=== PATIENT | female | born 1955 | race Caucasian/White ===

== ENCOUNTER 2019-12-10 01:10 | Day surgery (SDC) | payer BC, SELFPAY ==
[2019-12-09 13:51] VITALS: BMI 33.3
--- NOTE | 2019-12-10 13:34 | P.PNAN_ITS ---
Anes - Initial Pre Proc Eval Procedure: Operation Date: 12/10/19 14:00 Proposed Procedures p Esophagogastroduodenoscopy - Angel Moss MD Date/Time: 12/10/19 13:34 Surgeon: Angel Moss MD Pre Op Diagnosis: Abdominal Pain, Nausea Patient Data Age: 64 Gender: F Height: 5 ft 4 in Weight: 88 kg Allergies Allergy/AdvReac Type Severity Reaction Status Date / Time Penicillins Allergy Unknown Hives Verified 12/09/19 13:47 Home Medications Medication Instructions Recorded Confirmed Type furosemide 20 mg PO DAILY 12/09/19 12/09/19 History hydroxychloroquine 200 mg PO BID 12/09/19 12/09/19 History ibuprofen-famotidine [Duexis] 1 tablet PO DAILY 12/09/19 12/09/19 History jhypkswrjvfd-gmw-hrpj-FA-vit K 1 tablet PO DAILY 12/09/19 12/09/19 History [Adults Multivitamin] pantoprazole 40 mg PO DAILY 12/09/19 12/09/19 History Patient hx anesthesia problems: none Family hx anesthesia problems: none [facility] Past Medical History Medical History (Updated 12/10/19 @ 13:29 by Ted Christensen MD) Constipation GERD (gastroesophageal reflux disease) Nausea Social History Social History Alcohol intake: never Anes - Eval Final PreProcedure Day of Procedure 12/10/19 13:34 Patient weight: overweight Heart: regular rate and rhythm Lungs: clear to auscultation Airway: Mallampati scale class II Neurological: alert and oriented Last oral intake: >/= 8 hours ASA classification: II Emergent: no Anesthetic plan: proceed Anesthesia type and monitoring: general GIVS and standard monitoring Informed Consent: The patient's anesthetic plan and its attendant risks and benefits were discussed with the patient/family/POA. Questions were solicited and answers provided to the satisfaction of the patient/family/POA.
[2019-12-10] MEDS: LACTATED RINGERS 1,000 ML 150 ML IV CONT (13:37)
[2019-12-10 13:40] VITALS: BP 125/48; PULSE 62; RESP 16; TEMP 36.6; O2SAT 100; BMI 34.0
--- NOTE | 2019-12-10 14:52 | WPDHPUPDATE1 ---
History and Physical Update Update Date/Time: 12/10/19 14:52 History and Physical has been reviewed, including an updated exam of the patient. There are NO changes in the patient's condition. Risks, benefits, and alternatives have been discussed and questions answered. Patient agrees to proceed with procedure.
[2019-12-10 15:00] VITALS: BP 119/85; PULSE 58; RESP 20; O2SAT 99
[2019-12-10 15:10] VITALS: BP 109/59; PULSE 56; RESP 22; O2SAT 100
[2019-12-10 15:20] VITALS: BP 114/45; PULSE 55; RESP 23; O2SAT 100
== END 2019-12-10 15:34 | disposition home or self-care (01) ==
PROVIDERS: PCP Internal Medicine; Visit Provider Internal Medicine Gastroenterology
PROC: 0DJ08ZZ Inspection of Upper Intestinal Tract, Via Natural or Artificial Opening Endoscopic (ICD-10-PCS; CPT 43235; principal; 2019-12-10 14:00)
DX: K29.50 Unspecified chronic gastritis without bleeding (principal); K21.9 Gastro-esophageal reflux disease without esophagitis; K59.00 Constipation, unspecified
CPT/HCPCS: 43239; 88305; 88342; J2704; J7120

== ENCOUNTER → 2019-12-11 10:17 | Outpatient (CLI) | payer BC, SELFPAY ==
--- NOTE | ~2019-12-11 | US_ITS ---
EXAMINATION: US carotid duplex BI EXAM DATE: 12/11/2019 11:04 INDICATION: Bilateral carotid stenosis. TECHNIQUE: Grayscale, color and pulsed Doppler images of the cervical carotid arteries were obtained . The degree of vessel stenosis is placed in one of the following categories: normal, <50% stenosis, 50-69% stenosis, >=70% stenosis but less than near-occlusion, near-occlusion, or occlusion. Note that percent stenosis relative to normal distal artery lumen diameter is indirectly measured from velocit y measurements as described by Og, et al. Radiology 2003; 229:340-346. There is no prior study fo r comparison. FINDINGS: RIGHT SIDE: Right common carotid artery peak systolic velocity (PSV in cm/s): 97 Right bulb/internal carotid artery peak systolic velocity (PSV in cm/s): 86 Right internal carotid artery end diastolic velocity (EDV in cm/s): 26 Right ICA/CCA peak systolic ratio: 0.9 Right external carotid artery peak systolic velocity (PSV in cm/s): 110 Right vertebral artery antegrade flow: yes There is minimal carotid bulb plaque. Velocity and Doppler waveforms in the common and internal carotid arteries is normal. LEFT SIDE: Left common carotid artery peak systolic velocity (PSV in cm/s): 75 Left bulb/internal carotid artery peak systolic velocity (PSV in cm/s): 72 Left internal carotid artery end diastolic velocity (EDV in cm/s): 21 Left ICA/CCA peak systolic ratio: 1.0 Left external carotid artery peak systolic velocity (PSV in cm/s): 95 Left vertebral artery antegrade flow: yes There is minimal carotid bulb plaque. Velocity and Doppler waveforms in the common and internal carotid arteries is normal. IMPRESSION: 1. Less than 50 percent stenosis in the right internal carotid artery. 2. Less than 50 percent stenosis in the left internal carotid artery. > Reviewed, dictated and finalized at location [facility]. [facility] CSR
== END ==
PROVIDERS: PCP Internal Medicine; Visit Provider Internal Medicine
DX: I65.23 Occlusion and stenosis of bilateral carotid arteries (principal)
CPT/HCPCS: 93880

== ENCOUNTER → 2019-12-23 17:56 | Outpatient (CLI) | payer BC, SELFPAY ==
--- NOTE | ~2019-12-23 | MR_ITS ---
EXAMINATION: MR hip RT wo con DATE: 12/23/2019 19:02 INDICATION: Right hip abductor tendon deficiency with 6 months of right hip pain. TECHNIQUE: Magnetic resonance imaging (MRI) of the right hip was performed without intravenous contr ast. Sequences included full-field axial PD-weighted FS FSE and T1-weighted FSE, coronal of the pelvi s with PD-weighted FS FSE, small field of view of the affected hip with axial PD-weighted FS FSE, sa gittal PD-weighted FS FSE and coronal PD weighted FS FSE. Additional radial T1-weighted FGR oriented orthogonal to the acetabular rim were obtained for evaluation of the labrum. COMPARISON: None FINDINGS: Evaluation on the small field of view images is mildly limited by motion blurring. Bones/labrum/cartilage: Prominent metallic magnetic field artifact in the region of a left total hip arthroplasty. No fractur es. Curvilinear low T1 and high PD signal at the margins of an approximately 1.5 cm diameter region o f avascular necrosis along the anterosuperomedial aspect of the right femoral head. Abutting the post erior margin of this region of avascular necrosis is an additional approximately 10 mm diameter regio n of more uniformly PD hyperintense increased PD signal which could represent either additional avasc ular necrosis or subarticular edema related to severe osteoarthritis at the right hip joint space wit h extensive cartilage loss involving significantly greater than 50% of the cartilage thickness. Exten sive subarticular edema along the cephalad aspect of the acetabulum. Diffuse degenerative tearing of the right acetabular labrum with thickened macerated appearance anterosuperiorly and posterosuperiorl y. Moderate lumbar spondylosis. Fluid: Likely reactive small right hip joint effusion. Moderate amount of ascites throughout the lower abdom en and pelvis. Soft tissues: Likely symmetric mild fatty infiltration of the bilateral paraspinal, gluteal and tensor fascia milana musculature. The right abductor muscles and tendons appear normal. Mild asymmetric fatty atrophy of t he left obturator externus muscle which is likely related to the left total hip arthroplasty placemen t. The bilateral iliopsoas, gluteal and proximal hamstring tendons are normal. The uterus is not iden tified and has likely been surgically resected. Limited evaluation of visceral organs of the pelvis i s unremarkable. No pathologically enlarged pelvic/inguinal lymphadenopathy. IMPRESSION: 1. Avascular necrosis at the anterosuperior right femoral head. 2. Severe right hip osteoarthritis with diffuse labral degeneration small likely reactive joint effus ion. 3. Left total hip arthroplasty. 4. Moderate lumbar spondylosis. 5. Moderate amount of ascites in the pelvis and visualized lower abdomen. Reviewed, dictated and finalized at location A. [employer] IMPRESSION: 1. Avascular necrosis at the anterosuperior right femoral head. 2. Severe right hip osteoarthritis with diffuse labral degeneration small likel y reactive joint effusion. 3. Left total hip arthroplasty. 4. Moderate lumbar spondylosis. 5. Moderate amount of ascites in the pelvis and visualized lower abdomen.
== END ==
PROVIDERS: PCP Physician Assistant Medical; Visit Provider Nurse Practitioner Adult Health
DX: M79.89 Other specified soft tissue disorders (principal); M47.896 Other spondylosis, lumbar region; R18.8 Other ascites; M16.11 Unilateral primary osteoarthritis, right hip; M87.850 Other osteonecrosis, pelvis
CPT/HCPCS: 73721

== ENCOUNTER → 2020-01-04 08:49 | Outpatient (CLI) | payer BC, SELFPAY ==
--- NOTE | ~2020-01-04 | CT_ITS ---
EXAMINATION: CT abdomen pelvis w con DATE: 01/04/2020 09:26 INDICATION: Generalized abdominal pain, cramping, constipation. Ascites. TECHNIQUE: Computed tomography (CT) of the abdomen and pelvis was performed with 100 cc Omnipaque 350 intravenous contrast. Automated exposure control and iterative reconstruction technique were employe d. Exam dose: 958.29 mGy-cm total exam DLP. COMPARISON: None. FINDINGS: There is mild discoid atelectasis and/or scarring in the middle lobe, lingula and both lowe r lobes. Normal heart size. No pericardial or pleural effusion. There is moderate abdominal and pelvic ascites. No hepatic, splenic, pancreatic, and adrenal or renal space-occupying mass lesion is evident. Normal caliber of the abdominal aorta. No intraperitoneal or retroperitoneal or pelvic mass lesion or adenopathy is noted. The appendix measures up to 11 mm diameter. There is enhancement of the appendiceal wall. Recommend c linical correlation for possibly early appendicitis. There is diverticulosis of left and right colon. No bowel obstruction or intraperitoneal free air. Status post hysterectomy. The urinary bladder is evacuated and not optimally evaluated as result. Degenerative changes of the included lower thoracic and lumbar spine. Right hip osteoarthritis Status post left total hip arthroplasty. IMPRESSION: Moderate ascites Appendix measures up to 11 mm diameter, with enhancement of the wall; early appendicitis is suggested . Clinical correlation is advised Diverticulosis of the colon Reviewed, dictated and finalized at [facility]. Reviewed, dictated and finalized at location B. IMPRESSION: Moderate ascites Appendix measures up to 11 mm diameter, with enhancement of the wall; early yadira endicitis is suggested. Clinical correlation is advised Diverticulosis of the colon
[2020-01-04 09:11] LABS: Estimated Glomerular Filt Rate > 60
== END ==
PROVIDERS: Visit Provider Physician Assistant Medical
DX: R18.8 Other ascites (principal); K57.30 Diverticulosis of large intestine without perforation or abscess without bleeding; K38.8 Other specified diseases of appendix
CPT/HCPCS: 36415; 74177; Q9967

== ENCOUNTER 2020-01-14 07:36 | Outpatient (CLI) | payer BC, SELFPAY ==
--- NOTE | ~2020-01-14 | US_ITS ---
EXAMINATION: US paracentesis abd w/image DATE: 01/14/2020 09:26 INDICATION: Ascites. TECHNIQUE: The procedure and its risks and benefits were discussed with the patient. Potential risks discussed included bleeding and infection. The skin was prepped and draped in sterile fashion. 1% lid ocaine was used for local anesthesia. Under ultrasound guidance, a 5 Fr catheter with trochar was adv anced into the ascites in the right lower quadrant. Fluid was aspirated into vacuum bottles. The cath eter was removed, and a dressing was applied. There were no immediate complications. FINDINGS: Ultrasound images demonstrate ascites and the catheter within the fluid. There is also suggestion of subtle liver surface nodularity raising concern for cirrhosis. IMPRESSION: 1. Successful ultrasound-guided paracentesis yielding 2400 mL of clear yellow fluid. 2. Suggestion of subtle liver surface nodularity which could be seen with cirrhosis. Reviewed, dictated and finalized at location A. IMPRESSION: 1. Successful ultrasound-guided paracentesis yielding 2400 mL of clear yellow fluid. 2. Suggestion of subtle liver surface nodularity which could be seen with cirrh osis.
[2020-01-14 08:00] LABS: Mean Platelet Volume 9.1 fl (7.4-10.4); Platelet Count Result 426 k/mm3 (150-375)
[2020-01-14 08:14] LABS: Prothrombin Time 12.4 Seconds (11.1-14.7)
[2020-01-15 12:59] LABS: Appearance Peritoneal Fluid Cloudy (Clear); Color Peritoneal Fluid Yellow (Colorless); Source Peritoneal Fluid Peritoneal Fluid
[2020-01-15 13:00] LABS: Eosinophils Peritoneal Fluid 1 %; Lymphocytes Peritoneal Fluid 14 %; Macrophages Peritoneal Fluid 2 %; Mesothelial Cells Peritoneal Fluid 1 %; Monocytes Peritoneal Fluid 29 %; Neutrophils Peritoneal Fluid 53 % (0-25); Nucleated Cells Peritoneal Flu 771 /uL (0-500); RBC Peritoneal Fluid 1608 /uL (0-100000)
[2020-01-16 17:08] LABS: LDH Peritoneal Fluid 250 U/L (<63); Total Protein Peritoneal Fluid 4.1 g/dL
[2020-01-16 19:57] LABS: Albumin Peritoneal Fluid 2.4 g/dL
== END 2020-01-14 07:37 | disposition home or self-care (01) ==
PROVIDERS: PCP Internal Medicine; Visit Provider Internal Medicine Gastroenterology
DX: R18.8 Other ascites (principal)
CPT/HCPCS: 36415; 49083; 82042; 83615; 84157; 85049; 85610; 88104; 88108; 88305; 89051